=== PATIENT | female | born 1985 | race Caucasian/White ===

== ENCOUNTER 2023-06-03 11:32 | Emergency (ER) | payer OTHER, BC ==
[~2023-06-03] VITALS: Ht 160 cm; Wt 89.8 kg
[2023-06-03 11:33] VITALS: BP_SYST 159; PULSE 80; RESP 18; TEMP 97; O2SAT 98
== END 2023-06-03 14:22 | disposition home or self-care (01) ==
LOC: SED 11:32
DX: S30.0XXA Contusion of lower back and pelvis, initial encounter (principal); S10.93XA Contusion of unspecified part of neck, initial encounter; V89.2XXA Person injured in unspecified motor-vehicle accident, traffic, initial encounter; Y93.89 Activity, other specified; Y92.89 Other specified places as the place of occurrence of the external cause; Y99.8 Other external cause status
CPT/HCPCS: 70450-TC; 72125-TC; 72131; 76376; 99284